=== PATIENT | female | born 1955 | race Caucasian/White ===

== ENCOUNTER 2024-08-02 07:58 | Day surgery (SDC) | payer MEDICARE, OTHER ==
[2024-08-02 08:26] VITALS: RESP 12; TEMP 97.8
[2024-08-02] MEDS: diazePAM 5 MG TAB PO STA (08:28)
[2024-08-02 10:18] VITALS: BP 161/62; PULSE 71
--- NOTE | 2024-08-02 12:04 | FL ---
EXAMINATION TYPE: FL myelogram lumbosacral NO CHARGE, NO BILL DATE OF EXAM: 08/02/2024 10:45 AM COMPARISON: plainfilm CLINICAL INDICATION:Female, 68 years old with history of M54.16,M62.81,M62.ZEENAT,M54.6,M54.50; FINDINGS: Informed consent was obtained including discussion of the risks and benefits. Timeout was taken per p rotocol. Real-time fluoroscopy was performed to localize the lumbar spine access site. The patient wa s prepped and draped. Under sterile technique with local anesthesia a 22-gauge spinal needle was atte mpted to be introduced into the arachnoid space. Given patient scoliosis and postsurgical change and no prior imaging procedure was canceled and recommended noncontrast CT at this time. DAP: Not Reported by machine [id number] IMPRESSION: NO CHARGE, NO BILL Unsuccessful lumbar puncture with injection for CT myelogram. CT to follow [facility]key, , 08/02/2024 12:02 PM
--- NOTE | 2024-08-02 12:20 | CT ---
EXAMINATION TYPE: CT thor lumbar spine wo con DATE OF EXAM: 08/02/2024 11:17 AM COMPARISON: Myelogram imaging CLINICAL INDICATION: Female, 68 years old with history of pre myelogram imaging; TECHNIQUE: Axial images of the thoracic and lumbar spine were obtained without contrast. Coronal and sagittal reformats were performed. CT Contrast: Contrast used: mL of , none. Oral contrast used: none. CT DLP: mGycm, Automated exposure control for dose reduction was used. FINDINGS: Extensive scoliosis changes throughout the spine worse in the midthoracic and midlumbar spine with fi xation rods present extending from T5 to L3/4. Fixation hardware appears intact. There is severe spin al canal stenosis at L4-L5 secondary to disc bulge facet joint arthropathy... The remainder of the sp ine no canal is patent within limitations of exam.. Access may be present at the level of L3 on the l eft series 6 image 32 Multilevel degeneration changes worse at L3-L4 adjoining endplates with vacuum disc phenomenon and en dplate sclerosis and osteophyte formation. No evidence for fracture. Atherosclerosis of the arterial vasculature. Mild emphysema changes in the lung apices. IMPRESSION: 1. Severe scoliosis changes with hardware intact extending to the spine. 2. Severe spinal canal stenosis at L4-L5 3. Myelogram access may be present at the level of L3 on the left series 6 image 32. [facility], , 08/02/2024 12:17 PM
== END 2024-08-02 10:50 | disposition home or self-care (01) ==
LOC: RADPROMAIN 07:58
PROVIDERS: ATTEND Orthopaedic Surgery
DX: M48.061 Spinal stenosis, lumbar region without neurogenic claudication (principal); M41.86 Other forms of scoliosis, lumbar region; M41.84 Other forms of scoliosis, thoracic region; M54.50 Low back pain, unspecified; M54.16 Radiculopathy, lumbar region; M62.81 Muscle weakness (generalized); M54.6 Pain in thoracic spine
CPT/HCPCS: 62304; 72128; 72131